=== PATIENT | female | born 1990 | race Caucasian/White ===

== ENCOUNTER 2020-10-27 20:54 | Inpatient (IN) | payer OTHER ==
[2020-10-27 21:40] LABS: BASO % 0.5 % (0-2.0); EOS % 3.9 % (0-4.5); HEMATOCRIT 31.3 % (32.4-45.2); HEMOGLOBIN 10.3 GM/dl (10.7-15.3); MEAN CELL VOLUME 78.8 fl (80-96); MEAN PLT VOLUME 6.9 fl (7.5-11.1); MONO % 9.4 % (3.8-10.2); NEUT % 71.2 % (42.8-82.8); PLATELET COUNT 628 10^3/uL (134-434); RBC 3.97 M/mm3 (3.60-5.2); RDW 17.6 % (11.6-15.6); WHITE BLOOD COUNT 9.2 K/mm3 (4.0-10.8)
[2020-10-27 21:57] LABS: EPITHELIAL CELLS FEW /hpf
[2020-10-27 22:09] LABS: ALBUMIN 3.8 g/dl (3.4-5.0); BILIRUBIN,TOTAL 0.6 mg/dl (0.2-1); CALCIUM 8.9 mg/dl (8.5-10); CREATININE 0.8 mg/dl (0.55-1.3); TOT PROT 7.1 g/dl (6.4-8.2)
[2020-10-27] MEDS ORDERED: CEFTRIAXONE 1,000 MG in DEXTROSE 5%-WATER - 50 ML IVPB ONE (22:17)
[2020-10-27] MEDS ORDERED: cefTRIAXone SODIUM 1 GM VIAL ONE (22:27)
[2020-10-27] MEDS ORDERED: POTASSIUM CHLORIDE TABS 20 MEQ TABLET.ER (FP) PO ONE ×2 (22:37→22:50)
[2020-10-28] MEDS ORDERED: CEFTRIAXONE 1 GM in DEXTROSE 5%-WATER - 50 ML IVPB ONE ×2 (01:24→22:00)
[2020-10-28 02:53] VITALS: BMI 23.6
[2020-10-28] MEDS ORDERED: SODIUM CHLORIDE 1,000 ML IV SCH (08:00)
[2020-10-28] MEDS ORDERED: SODIUM CHLORIDE 1,000 ML with POTASSIUM CHLORIDE 40 MEQ IV SCH (08:30)
[2020-10-28] MEDS ORDERED: POTASSIUM CHLORIDE 40 MEQ in SODIUM CHLORIDE 1,000 ML IV SCH (09:09)
[2020-10-28 09:30] LABS: CALCIUM 8.3 mg/dL (8.5-10.1)
[2020-10-28 09:31] LABS: BLOOD UREA NITROGEN 6.6 mg/dL (7-18); EOS % 7.7 % (0-4.5); HEMATOCRIT 31.8 % (32.4-45.2); HEMOGLOBIN 10.1 GM/dL (10.7-15.3); MCH 25.3 pg (25.7-33.7); MCHC 31.6 g/dl (32.0-36.0); MEAN CELL VOLUME 79.8 fl (80-96); MEAN PLT VOLUME 7.1 fl (7.5-11.1); MONO % 11.7 % (3.8-10.2); NEUT % 55.6 % (42.8-82.8); PLATELET COUNT 554 10^3/uL (134-434); RBC 3.99 M/mm3 (3.60-5.2); RDW 18.6 % (11.6-15.6); WHITE BLOOD COUNT 5.4 K/mm3 (4.0-10.0)
[2020-10-28 09:34] LABS: CREATININE 0.6 mg/dL (0.55-1.3)
[2020-10-28 11:26] LABS: MAGNESIUM 2.1 mg/dL (1.8-2.4)
[2020-10-28 11:30] LABS: PHOSPHOROUS 3.9 mg/dL (2.5-4.9)
[2020-10-28] MEDS ORDERED: ONDANSETRON 4 MG/2 ML VIAL IVPUSH PRN (17:38)
[2020-10-28] MEDS ORDERED: PROPOFOL 20 ML ONE (17:47)
[2020-10-28] MEDS ORDERED: MIDAZOLAM HCL 2 MG/2 ML SINGLE DOSE VIAL ONE (17:47)
[2020-10-28] MEDS ORDERED: KETOROLAC TROMETHAMINE 30 MG/1 ML VIAL ONE (17:48)
[2020-10-28] MEDS ORDERED: DEXAMETHASONE SOD PHOSPHATE 4 MG/1 ML VIAL ONE (17:48)
[2020-10-28] MEDS ORDERED: GENTAMICIN 80MG PREMIX BAG IVPB ONE (18:06)
[2020-10-28] MEDS ORDERED: IOHEXOL 180 MG/1 ML ML IJ ONE ×2 (18:15)
[2020-10-28 18:50] VITALS: TEMP 97.9
[2020-10-28 19:21] VITALS: BP 109/72; PULSE 54
[2020-10-28] MEDS ORDERED: CEFTRIAXONE 2 GM in DEXTROSE 5%-WATER 100 ML IVPB ONE (22:00)
== END 2020-10-28 20:55 | disposition home or self-care (01) | DRG 446 ==
LOC: FER 20:54 → FM/S 10-28 01:44 → J6S 10-28 06:20 → OBSVTOIN 10-28 06:54
PROVIDERS: ADMIT Internal Medicine; ATTEND Internal Medicine
PROC: 0TC68ZZ Extirpation of Matter from Right Ureter, Via Natural or Artificial Opening Endoscopic (ICD-10-PCS; 2020-10-28)
PROC: BT1DZZZ Fluoroscopy of Right Kidney, Ureter and Bladder (ICD-10-PCS; 2020-10-28)
PROC: 0T768DZ Dilation of Right Ureter with Intraluminal Device, Via Natural or Artificial Opening Endoscopic (ICD-10-PCS; principal; 2020-10-28 17:30)
DX: N13.6 Pyonephrosis (principal); E87.6 Hypokalemia
CPT/HCPCS: 36415; 74176-TC; 80048; 80053; 81003; 81015; 81025; 83735; 84100; 84703; 85025; 87086; 94760; 99285-25; C9803; G0378; U0003; U0005

== ENCOUNTER 2020-12-19 04:39 | Day surgery (SDC) | payer OTHER ==
[2020-12-16 10:07] VITALS: BMI 23.3
[2020-12-19 19:53] VITALS: BP 110/72; PULSE 80; TEMP 97.6
== END 2020-12-19 20:15 | disposition home or self-care (01) ==
LOC: JASU-SURG 04:39
PROVIDERS: ATTEND Urology
PROC: 0TF3XZZ Fragmentation in Right Kidney Pelvis, External Approach (ICD-10-PCS; principal; 2020-12-19 14:30)
DX: N20.0 Calculus of kidney (principal)
CPT/HCPCS: 81025

== ENCOUNTER 2024-08-28 08:52 | Emergency (ER) | payer SELFPAY ==
[2024-08-28 08:56] VITALS: BP 115/52; PULSE 75; RESP 18; TEMP 98.1; BMI 25.0
[2024-08-28 09:28] LABS: HCG,QUALITATIVE URINE Negative
[2024-08-28 09:40] LABS: EPITHELIAL CELLS 21-50 /hpf
[2024-08-28] MEDS ORDERED: ACETAMINOPHEN 500 MG TABLET (FP) ONE (10:06)
[2024-08-28] MEDS ORDERED: IBUPROFEN 400 MG TABLET (FP) PO ONE (10:06)
[2024-08-28] MEDS: IBUPROFEN 400 MG TABLET (FP) PO ONE (10:09)
[2024-08-28] MEDS: ACETAMINOPHEN 500 MG TABLET (FP) PO ONE (10:09)
== END 2024-08-28 11:06 | disposition home or self-care (01) ==
LOC: FER 08:52
DX: R30.0 Dysuria (principal); R10.30 Lower abdominal pain, unspecified
CPT/HCPCS: 81003; 81015; 84703; 87086; 99283-25